=== PATIENT | male | born 1985 | race Caucasian/White ===

== ENCOUNTER 2019-12-23 15:06 | Emergency (ER) | payer OTHER ==
[~2019-12-23] VITALS: Ht 190.5 cm; Wt 163.3 kg
[2019-12-23] MEDS ORDERED: AVAPRO 150 MG150 MG PO (15:25)
[2019-12-23] MEDS ORDERED: TOPROL XL50 MG PO (15:25)
[2019-12-23 15:57] LABS: ABSOLUTE BASOPHILS 0.1 thou/uL (0.0-0.2); ABSOLUTE EOSINOPHILS 0.2 thou/uL (0.0-0.7); ABSOLUTE LYMPHOCYTES 2.6 thou/uL (0.8-5.3); ABSOLUTE MONOCYTES 0.7 thou/uL (0.0-1.2); ABSOLUTE NEUTROPHILS 3.5 thou/uL (1.6-8.1); EOSINOPHILS 2.7 %; HEMATOCRIT 46.5 % (42.0-52.0); LYMPHOCYTES 36.2 %; MCH 29.6 pg (26.0-34.0); MCHC 34.5 g/dL (28.0-37.0); MONOCYTES 10.3 %; MPV 9.5 fl. (7.2-11.1); NUCLEATED RBCS 0 /100WBC; PLATELET COUNT* 259 thou/uL (150-400); POLYS 49.8 %; WBC 7.1 thou/uL (4.0-11.0)
[2019-12-23 15:59] LABS: URINE BILIRUBIN NEGATIVE (Negative); URINE BLOOD NEGATIVE (Negative); URINE CLARITY CLEAR; URINE COLOR YELLOW; URINE GLUCOSE-RANDOM NEGATIVE (Negative); URINE KETONES NEGATIVE (Negative); URINE LEUKOCYTES-REFLEX NEGATIVE (Negative); URINE NITRITE-REFLEX NEGATIVE (Negative); URINE PROTEIN NEGATIVE (Negative); URINE SPECIFIC GRAVITY <= 1.005 (1.005-1.030); URINE UROBILINOGEN 0.2 E.U./dl (0.2-1.0)
[2019-12-23 16:07] LABS: CALCIUM 8.9 mg/dL (8.5-10.1); CREATININE 1.2 mg/dL (0.6-1.3); POTASSIUM 4.1 mmol/L (3.5-5.1)
[2019-12-23 16:12] LABS: ALBUMIN 4.3 g/dL (3.4-5.0); TOTAL BILIRUBIN 0.7 mg/dL (<0.1-1.0)
[2019-12-23] MEDS ORDERED: CLONIDINE HCL0.2 M2 PO (17:06)
[2019-12-23 18:23] VITALS: BP 116/62
--- NOTE | 2019-12-24 13:29 | EKG ---
[place] [address] ELECTROCARDIOGRAM REPORT Name: XU FRAGOSO Room: [facility]#: [id number] Admission: 12/23/19 Attend Phys: Discharge: 12/23/19 Date of : 83 Date of Service: 12/23/19 1602 Report #: [id number] THIS REPORT FOR: //name// [facility] ED Test Date: 2019-12-23 Test Time: 16:02:43 Pat Name: XU FRAGOSO Department: Room: Gender: [employer] Operator: [facility] : 1985 Requested By: Renetta Salazar Order Number: [id number] MD: Abiel Castillo Measurements Intervals [place] Rate: 72 P: 59 AR: 178 QRS: 14 QRSD: 98 T: 11 QT: 376 QTc: 412 Interpretive Statements Sinus rhythm No previous ECG available for comparison Electronically Signed On 12-24-2019 13:26:52 CDT by Abiel Castillo [email or web address] <ELECTRONICALLY SIGNED> By: Abiel Castillo MD, [facility] 12/24/19 1326 1602 160 Abiel Castillo MD, FACC /EPI
== END 2019-12-23 18:27 | disposition home or self-care (01) ==
LOC: M.ERS 15:06
PROVIDERS: Nurse Practitioner Family
DX: I10 Essential (primary) hypertension (principal); I95.9 Hypotension, unspecified; R20.0 Anesthesia of skin; R42 Dizziness and giddiness

== ENCOUNTER 2019-12-28 19:18 | Emergency (ER) | payer OTHER ==
[~2019-12-28] VITALS: Ht 190.5 cm; Wt 154.2 kg
[~2019-12-28 19:18] MED LIST: AVAPRO 150 MG150 MG PO; CLONIDINE HCL0.2 M2 PO; TOPROL XL50 MG PO
[2019-12-28] MEDS ORDERED: CHLORTHALIDONE25 MG PO (19:35)
[2019-12-28 20:08] LABS: ABSOLUTE BASOPHILS 0.1 thou/uL (0.0-0.2); ABSOLUTE EOSINOPHILS 0.2 thou/uL (0.0-0.7); ABSOLUTE LYMPHOCYTES 2.8 thou/uL (0.8-5.3); ABSOLUTE MONOCYTES 1.2 thou/uL (0.0-1.2); ABSOLUTE NEUTROPHILS 3.8 thou/uL (1.6-8.1); BASOPHILS 0.7 %; EOSINOPHILS 1.9 %; HEMATOCRIT 46.4 % (42.0-52.0); HEMOGLOBIN 16.2 gm/dL (14.0-18.0); LYMPHOCYTES 35.1 %; MCH 29.6 pg (26.0-34.0); MCHC 34.9 g/dL (28.0-37.0); MCV 84.7 fL (80.0-100.0); MONOCYTES 14.5 %; MPV 9.1 fl. (7.2-11.1); NUCLEATED RBCS 0 /100WBC; PLATELET COUNT* 253 thou/uL (150-400); POLYS 47.8 %; RBC 5.48 mil/uL (4.50-6.00)
[2019-12-28 20:19] LABS: PROTIME 10.1 Seconds (9.20-11.50)
[2019-12-28 20:31] LABS: CALCIUM 9.1 mg/dL (8.5-10.1); CREATININE 1.2 mg/dL (0.6-1.3); POTASSIUM 3.5 mmol/L (3.5-5.1)
[2019-12-28 20:36] LABS: ALBUMIN 4.3 g/dL (3.4-5.0); TOTAL BILIRUBIN 0.6 mg/dL (<0.1-1.0); TOTAL PROTEIN 8.1 g/dL (6.4-8.2)
[2019-12-28] MEDS ORDERED: NEURONTIN 300M300 M2 PO (21:39)
[2019-12-28 21:48] VITALS: BP 105/70
--- NOTE | 2019-12-29 12:16 | EKG ---
[place] [address] ELECTROCARDIOGRAM REPORT Name: XU FRAGOSO Room: [facility]#: [id number] Admission: 12/28/19 Attend Phys: Discharge: 12/28/19 Date of : 83 Date of Service: 12/28/191951 Report #: [id number] THIS REPORT FOR: //name// [facility] ED Test Date: 2019-12-28 Test Time: 19:52:50 Pat Name: XU FRAGOSO Department: Room: Gender: It Generalist: [facility] : 1985 Requested By: Onel Leahy Order Number: [id number] MD: Abiel Castillo Measurements Intervals [place] Rate: 76 P: 47 MS: 172 QRS: -7 QRSD: 100 T: 11 QT: 366 QTc: 412 Interpretive Statements Sinus rhythm Minimal ST elevation, anterior leads consider early repolarization Compared to ECG 12/23/2019 16:02:43 no change Electronically Signed On 12-29-2019 12:14:21 CDT by Abiel Castillo [email or web address] <ELECTRONICALLY SIGNED> By: Abiel Castillo MD, [facility] 12/29/19 1214 51 51 Abiel Castillo MD, [facility] /EPI
== END 2019-12-28 21:49 | disposition home or self-care (01) ==
LOC: M.ERS 19:18
PROVIDERS: Emergency Medicine Emergency Medical Services
DX: G50.0 Trigeminal neuralgia (principal); I10 Essential (primary) hypertension